=== PATIENT | male | born 1935 | race Caucasian/White ===

== ENCOUNTER 2019-01-11 06:41 | Day surgery (SDC) | payer OTHER ==
[~2019-01-11] VITALS: Ht 175.3 cm; Wt 82.0 kg
[~2019-01-11 06:41] MED LIST: ASPI325 PO; EPIN.3I IM; Epipen0.3 MG/0.3 IM; HYDCHL12.5 PO; LISI5 PO; Nitrostat0.4 MG SL; Pepcid40 MG PO; Prednisone20 MG PO; SIMV40 PO; VITAMIN D32000 UNIT PO
[2019-01-11 07:19] LABS: BASOPHILS ABSOLUTE AUTO 0.02 K/mm3 (0.00-0.23); BASOPHILS PERCENT AUTO 0 % (0-2); EOSINOPHILS ABSOLUTE AUTO 0.02 K/mm3 (0.00-0.68); EOSINOPHILS PERCENT AUTO 0 % (0-6); Hematocrit 29.2 % (37.0-53.0); Hemoglobin 9.9 g/dL (13.5-17.5); IMMATURE GRAN ABSOLUTE AUTO 0.09 K/mm3 (0.00-0.10); IMMATURE GRAN PERCENT AUTO 1 % (0-1); LYMPHOCYTES ABSOLUTE AUTO 1.33 K/mm3 (0.84-5.20); LYMPHOCYTES PERCENT AUTO 9 % (21-46); MONOCYTES ABSOLUTE AUTO 0.95 K/mm3 (0.16-1.47); MONOCYTES PERCENT AUTO 6 % (4-13); Mean Corpuscular HGB 37.5 pg (26.0-34.0); Mean Corpuscular HGB Conc 33.9 g/dL (31.5-36.5); Mean Corpuscular Volume 111 fL (80-100); Mean Platelet Volume 11.2 fL (9.1-12.4); NEUTROPHILS ABSOLUTE AUTO 12.51 K/mm3 (1.96-9.15); NEUTROPHILS PERCENT AUTO 84 % (41-73); Platelet Count 385 K/mm3 (150-400); Red Blood Cell Count 2.64 M/mm3 (4.30-5.90); White Blood Cell Count 14.92 K/mm3 (4.00-11.30)
[2019-01-11] MEDS ORDERED: CLOP75 PO (07:24)
[2019-01-11] MEDS ORDERED: (None)20 M1 PO (07:25)
[2019-01-11] MEDS ORDERED: PANT40 PO (07:26)
[2019-01-11 07:52] LABS: Bun/Creatinine Ratio 26.8 (12.0-20.0); Calcium, Blood 8.5 mg/dL (8.5-10.1); Creatinine, Blood 1.27 mg/dL (0.60-1.20)
--- NOTE | 2019-01-11 14:12 | NUR ---
PT AMBULATES AROUND HALLWAY WITH STEADY GAIT. RIGHT GROIN SITE REMAINS STABLE, HERMAN PAD IN PLACE, TEGADERM INTACT. SOFT AND NON TENDER WITH NO ACTIVE BLEEDING, OOZING, OR PAIN.
--- NOTE | 2019-01-11 14:55 | NUR ---
PT VERBALIZED UNDERSTANDING OF D/C INSTRUCTIONS. BOTH TR BAND WERE REMOVED FROM RIGHT AND LEFT WRIST. RED CLOTH DOT DRESSINGS APPLIED TO BOTH SITES. ARM BOARDS IN PLACE TO BOTH WRIST. SITES APPEAR STABLE, SOFT NON TENDER NO ACTIVE BLEEDING, OOZING, OR PAIN NOTED. RIGHT GROIN SITE ALSO APPEARS STABLE. HERMAN PAD IN PLACE WITH CLEAR TEGADERM INTACT. IV WAS REMOVED FROM LAC WITH CATH INTACT, PRESSURE DRESSING APPLIED. NADN AT TIME OF DISPO. PT WAS ASSISTED WITH GETTING SHOES ON. DAUGHTER IS HERE TO DRIVE PT HOME. PAPERWORK IN HAND. TAKEN OUT BY W/C TO PRIVATE VEHICLE.
== END 2019-01-11 14:52 | disposition home or self-care (01) ==
LOC: MHTC 06:41
PROVIDERS: Internal Medicine Cardiovascular Disease
DX: I25.10 Atherosclerotic heart disease of native coronary artery without angina pectoris (principal); R07.9 Chest pain, unspecified; Z95.1 Presence of aortocoronary bypass graft; I25.2 Old myocardial infarction; Z86.73 Personal history of transient ischemic attack (TIA), and cerebral infarction without residual deficits; I10 Essential (primary) hypertension; E78.5 Hyperlipidemia, unspecified; Z79.82 Long term (current) use of aspirin; Z79.899 Other long term (current) drug therapy; Z87.891 Personal history of nicotine dependence; Z82.49 Family history of ischemic heart disease and other diseases of the circulatory system
CPT/HCPCS: 80048; 85025; 93459; 99152; 99153; C1769; C1894; J0690; J1200; J1644; J1720; J2250; J3010; J3490; J7030; Q9967

== ENCOUNTER → 2022-03-26 | Outpatient (CLI) | payer OTHER ==
[~2022-03-26] MED LIST changes: +(None)20 M1 PO; +CLOP75 PO; +PANT40 PO
== END | disposition home or self-care (01) ==
LOC: PLD 15:10 → LAB SHORT 15:10
DX: L57.0 Actinic keratosis (principal)
CPT/HCPCS: 88305